=== PATIENT | male | born 1945 ===

== ENCOUNTER 2021-02-01 13:44 | Emergency (ER) | payer OTHER ==
--- OUTSIDE RECORDS SUMMARY | 2021-02-01 13:45 | XMS REPORT | Continuity of Care Document ---
:1945 Author Organization [facility] t Address [address] Garcia [address] [place] [id number] Care Team Providers Name Role Phone Unavailable Unavailable Unavailable Problems This patient has no known problems. Allergies, Adverse Reactions, Alerts This patient has no known allergies or adverse reactions. Medications This patient has no known medications. Procedures This patient has no known procedures. Results This patient has no known results.
[2021-02-01] MEDS ORDERED: NA CHLORIDE 0.9% 1,000 ML ONE (13:52)
[2021-02-01] MEDS ORDERED: FAMOTIDINE 20 MG/2 ML VIAL IV ONE (13:52)
[2021-02-01] MEDS ORDERED: ONDANSETRON 4 MG/2 ML VIAL ONE (13:52)
[2021-02-01 14:04] LABS: Basophils % 0.5 % (0-1.3); Hematocrit 41.2 % (39.6-49.0); Lymphocytes % 11.7 % (15.3-44.8); MPV 8.8 fL (7.6-11.3); RBC Red Blood Cell Count 4.55 M/uL (4.33-5.43)
[2021-02-01 14:07] LABS: Protime INR 1.09
[2021-02-01 14:20] LABS: ALT/SGPT 42 U/L (12-78); AST/SGOT 28 U/L (15-37); Albumin 3.6 g/dL (3.4-5.0); Alkaline Phosphatase 82 U/L (45-117); BUN Blood Urea Nitrogen 25 mg/dL (7-18); Bicarbonate 27 mmol/L (21-32); Bilirubin Direct 0.2 mg/dL (0-0.2); Bilirubin Total 0.5 mg/dL (0.2-1.0); Glucose Level 84 mg/dL (74-106); Magnesium 2.4 mg/dL (1.8-2.4); NT PRO-BNP 36 pg/mL (<450); Protein, Total 7.2 g/dL (6.4-8.2); Sodium Level 139 mmol/L (136-145); Troponin (Emerg Dept Use Only) < 0.02 ng/mL (0.0-0.045)
--- NOTE | 2021-02-01 14:24 | RAD REPORT ---
EXAM DESCRIPTION: Catherine Single View02/01/2021 2:15 pm CLINICAL HISTORY: cough COMPARISON: none FINDINGS: The lungs appear clear of acute infiltrate. The heart is normal size IMPRESSION: No acute abnormalities displayed
--- NOTE | 2021-02-01 14:47 | EDPHYS ---
Physician Documentation [facility] Name: Luis F Greco Age: 75 yrs Sex: Male : 1945 Arrival Date: 02/01/2021 Time: 13:45 Bed 6 Private MD: ED Physician Brandon Mcmillan HPI: 02/01 14:24 This 75 yrs old Male presents to ER via Stretcher with complaints of Syncope. gumaro 14:24 The patient has experienced near-syncope, almost passed out, felt dizzy, felt faint, gumaro felt generally weak. Onset: The symptoms/episode began/occurred just prior to arrival. Duration: This was a single episode, that lasted 3 minute(s). Context: the episode(s) was witnessed, by a bystander, by family, occurred at a hospital, occurred while the patient was WITH . Associated injury: The patient did not suffer any apparent associated injury. Associated signs and symptoms: The patient has no apparent associated signs or symptoms. Current symptoms: Currently, the patient is not experiencing any symptoms. The patient has not experienced similar symptoms in the past. - Immunization history:: Adult Immunizations up to date. - Social history:: Smoking status: Patient denies any tobacco usage or history of. - Family history:: not pertinent. ROS: 14:24 Constitutional: Negative for fever, chills, and weight loss, Eyes: Negative for injury, gumaro pain, redness, and discharge, ENT: Negative for injury, pain, and discharge, Neck: Negative for injury, pain, and swelling, Cardiovascular: Negative for chest pain, palpitations, and edema, Respiratory: Negative for shortness of breath, cough, wheezing, and pleuritic chest pain, Abdomen/GI: Negative for abdominal pain, nausea, vomiting, diarrhea, and constipation, Back: Negative for injury and pain, : Negative for injury, bleeding, discharge, and swelling, MS/Extremity: Negative for injury and deformity, Skin: Negative for injury, rash, and discoloration, Psych: Negative for depression, anxiety, suicide ideation, homicidal ideation, and hallucinations, Allergy/Immunology: Negative for hives, rash, and allergies, Endocrine: Negative for neck swelling, polydipsia, polyuria, polyphagia, and marked weight changes, Hematologic/Lymphatic: Negative for swollen nodes, abnormal bleeding, and unusual bruising. 14:24 Neuro: Positive for near syncope, weakness, PALE AND CLAMMY. Exam: 14:30 Constitutional: This is a well developed, well nourished patient who is awake, alert, gumaro and in no acute distress. Head/Face: Normocephalic, atraumatic. Eyes: Pupils equal round and reactive to light, extra-ocular motions intact. Lids and lashes normal. Conjunctiva and sclera are non-icteric and not injected. Cornea within normal limits. Periorbital areas with no swelling, redness, or edema. ENT: Nares patent. No nasal discharge, no septal abnormalities noted. Tympanic membranes are normal and external auditory canals are clear. Oropharynx with no redness, swelling, or masses, exudates, or evidence of obstruction, uvula midline. Mucous membranes moist. Neck: Trachea midline, no thyromegaly or masses palpated, and no cervical lymphadenopathy. Supple, full range of motion without nuchal rigidity, or vertebral point tenderness. No Meningismus. Chest/axilla: Normal chest wall appearance and motion. Nontender with no deformity. No lesions are appreciated. Cardiovascular: Regular rate and rhythm with a normal S1 and S2. No gallops, murmurs, or rubs. Normal PMI, no JVD. No pulse deficits. Respiratory: Lungs have equal breath sounds bilaterally, clear to auscultation and percussion. No rales, rhonchi or wheezes noted. No increased work of breathing, no retractions or nasal flaring. Abdomen/GI: Soft, non-tender, with normal bowel sounds. No distension or tympany. No guarding or rebound. No evidence of tenderness throughout. Back: No spinal tenderness. No costovertebral tenderness. Full range of motion. Male : Normal genitalia with no discharge or lesions. MS/ Extremity: Pulses equal, no cyanosis. Neurovascular intact. Full, normal range of motion. Neuro: Awake and alert, GCS 15, oriented to person, place, time, and situation. Cranial nerves II-XII grossly intact. Motor strength 5/5 in all extremities. Sensory grossly intact. Cerebellar exam normal. Normal gait. Psych: Awake, alert, with orientation to person, place and time. Behavior, mood, and affect are within normal limits. 14:30 Skin: Appearance: Color: pale, Temperature: cool, Moisture: diaphoretic, petechiae, not noted, ecchymosis, not noted, flushing, not noted, diaphoresis is noted, abscess, not appreciated, cellulitis, is not appreciated, induration, that is mild is noted. 14:30 Neuro: Orientation: is normal, appropriate for stated age, no acute changes, Mentation: is normal, appropriate for stated age, no acute changes, Memory: is normal, appropriate for stated age, no acute changes, Cranial nerves: grossly normal, is grossly normal based on the patient's age, no acute changes, Cerebellar function: is grossly normal, is grossly normal based on the patient's age, no acute changes, Motor: is normal, is grossly normal based on the patient's age, no acute changes, moves all fours, strength is normal, Sensation: no obvious gross deficits, no acute changes, Gait: is steady, at a normal pace, without difficulty, appropriate for age, Deep tendon reflexes are normal, 2+ (normal) in the bilateral brachioradialis, bicep, tricep and patellar and Achilles tendons, seizure activity, is not displayed by the patient. 14:33 ECG was reviewed by the Attending Physician. gumaro Vital Signs: 13:45 BP 118 / 59; Pulse 60; Resp 17; Pulse Ox 100% ; Pain 0/10; jh6 13:57 BP 118 / 59; Pulse 62; Resp 16; Pulse Ox 96% on R/A; iw 14:47 BP 114 / 60; Pulse 60; Resp 18; Pulse Ox 100% ; Pain 0/10; jh6 14:55 BP 114 / 60 Sitting; Pulse 60; Resp 17; Pulse Ox 100% ; jh6 14:55 BP 104 / 57 Standing; Pulse 67; Resp 17; Pulse Ox 100% ; Pain 0/10; jh6 NIH Stroke Scale Scores: 14:30 NIHSS Score: 0 gumaro MDM: 13:47 Patient medically screened. gumaro 14:32 Differential Diagnosis: cardiac arrhythmia, cerebrovascular accident, emotional gumaro response, GI bleed, idiopathic syncope, vasovagal episode. Data reviewed: vital signs, nurses notes, lab test result(s), EKG, radiologic studies, plain films. Data interpreted: groundwater monitoring technician: rate is 96 beats/min, rhythm is regular, Pulse oximetry: on room air is 96 %. Test interpretation: by ED physician or midlevel provider: ECG, plain radiologic studies. Counseling: I had a detailed discussion with the patient and/or guardian regarding: the historical points, exam findings, and any diagnostic results supporting the discharge/admit diagnosis, lab results, radiology results, the need for outpatient follow up, for definitive care, a prior authorization nurse, an testing lead. 02/01 13:48 Order name: Basic Metabolic Panel; Complete Time: 14:24 [facility] 02/01 13:48 Order name: CBC with Diff; Complete Time: 14:24 [facility] 02/01 13:48 Order name: LFT's; Complete Time: 14:24 [facility] 02/01 13:48 Order name: Magnesium; Complete Time: 14:24 [facility] 02/01 13:48 Order name: NT PRO-BNP; Complete Time: 14:24 [facility] 02/01 13:48 Order name: PT-INR; Complete Time: 14:24 [facility] 02/01 13:48 Order name: Troponin (emerg Dept Use Only); Complete Time: 14:24 [facility] 02/01 13:48 Order name: XRAY Chest (1 view); Complete Time: 14:46 [facility] 02/01 13:48 Order name: EKG; Complete Time: 13:49 [facility] 02/01 13:48 Order name: Cardiac monitoring; Complete Time: 14:01 [facility] 02/01 14:01 Order name: glucometer results - FOR PT WITH NO ID; Complete Time: 14:24 [facility] 02/01 13:48 Order name: EKG - Nurse/Tech; Complete Time: 14:01 [facility] 02/01 13:48 Order name: IV Saline Lock; Complete Time: 14:47 [facility] 02/01 13:48 Order name: Labs collected and sent; Complete Time: 14:07 [facility] 02/01 13:48 Order name: O2 Per Protocol; Complete Time: 14:07 [facility] 02/01 13:48 Order name: O2 Sat Monitoring; Complete Time: 14:07 [facility] 02/01 13:48 Order name: Urine Dipstick-Ancillary (obtain specimen) [facility] 02/01 14:46 Order name: Orthostatics; Complete Time: 14:55 [facility] EC:33 Rate is 94 beats/min. Rhythm is regular. QRS [place] is Normal. CA interval is normal. QRS gumaro interval is normal. QT interval is normal. No Q waves. T waves are Normal. No ST changes noted. Clinical impression: Normal ECG and No evidence of ischemia. Interpreted by me. Reviewed by me. Administered Medications: 14:00 Drug: NS 0.9% 1000 ml Route: IV; Rate: 1 bolus; Site: right forearm; [facility] 14:30 Follow up: IV Status: Completed infusion 6 14:51 Follow up: Response: No adverse reaction 6 14:00 Drug: Pepcid (famotidine) 20 mg Route: IVP; Site: right forearm; 6 14:51 Follow up: Response: No adverse reaction [facility] 14:00 Drug: Zofran (Ondansetron) 4 mg Route: IVP; Site: right forearm; 6 14:51 Follow up: Response: No adverse reaction [facility] Disposition Summary: 02/01/21 14:46 Discharge Ordered Location: Home gumaro Problem: new gumaro Symptoms: have improved gumaro Condition: Stable gumaro Diagnosis - Syncope Near - VASOVAGAL gumaro Followup: gumaro - With: Private Physician - When: 2 - 3 days - Reason: Recheck today's complaints, Continuance of care, Re-evaluation by your physician Discharge Instructions: - Discharge Summary Sheet gumaro - Near-Syncope gumaro - Syncope gumaro - Weakness gumaro - Near-Syncope, Mogd-[id number]-Vkte gumaro - Syncope, [id number] gumaro - Weakness, Dura-gc-Sria gumaro Forms: - Medication Reconciliation Form gumaro - Thank You Letter gumaro - Antibiotic Education gumaro - Prescription Opioid Use gumaro NIH Stroke Scale - NIH Stroke Score Date: 02/01/2021 Time: 14:30 Total Score = 0 1a. Level of Consciousness (LOC) - 0(Alert) 1b. Level of Consciousness (LOC) (Month \T\ Age) - 0(Both) 1c. LOC Commands (Open \T\ Closes Eyes/Mechanical Maintenance Supervisor) - 0(Both) 2. Best Gaze (Lateral Gaze Paresis) - 0(Normal) 3. Visual Field Loss - 0(No visual loss) 4. Facial Palsy - 0(Normal) 5a. Left Arm: Motor (10-second hold) - 0(No drift) 5b. Right Arm: Motor (10-second hold) - 0(No drift) 6a. Left Leg: Motor (5-second hold - always test supine) - 0(No drift) 6b. Right Leg: Motor (5-second hold - always test supine) - 0(No drift) 7. Limb Ataxia (finger/nose \T\ heel/carrillo - test with eyes open) - 0(Absent) 8. Sensory Loss (pinprick arms/legs/face) - 0(Normal) 9. Best Language: Aphasia (description/naming/reading) - 0(No aphasia) 10. Dysarthria (speech clarity - read or repeat words) - 0(Normal) 11. Extinction and Inattention (visual/tactile/auditory/spatial/personal) - 0(No abnormality) Initials: gumaro Signatures: Dispatcher [employer] Brandon Joaquin MD MD cha Peltier, Brian, RN RN bp Bea Altman RN RN jh6
--- NOTE | 2021-02-01 14:47 | ER ---
Nurse's Notes [facility] Name: Luis F Greco Age: 75 yrs Sex: Male : 1945 Arrival Date: 02/01/2021 Time: 13:45 Bed 6 Private MD: Diagnosis: Syncope Near-VASOVAGAL Presentation: 02/01 13:56 Chief complaint: pt was visitor in ER bed 14, started to feel weak and dizzy,sat down iw in chair, syncopal episode lasted a few seconds, vomited X 2, appears pale diaphoretic, moved to ER bed 6. Coronavirus screen: At this time, the client does not indicate any symptoms associated with coronavirus-19. Ebola Screen: Patient negative for fever greater than or equal to 101.5 degrees Fahrenheit, and additional compatible Ebola Virus Disease symptoms Patient denies exposure to infectious person. Patient denies travel to an Ebola-affected area in the 21 days before illness onset. No symptoms or risks identified at this time. Initial Sepsis Screen: Does the patient meet any 2 criteria? No. Patient's initial sepsis screen is negative. Does the patient have a suspected source of infection? No. Patient's initial sepsis screen is negative. Risk Assessment: Do you want to hurt yourself or someone else? Patient reports no desire to harm self or others. Onset of symptoms was February 01, 2021. 13:56 Method Of Arrival: Stretcher 13:56 Acuity: JORGE ALBERTO 2 iw Triage Assessment: 14:25 General: Appears distressed, uncomfortable, Behavior is cooperative, appropriate for bp age, anxious. Pain: Denies pain. EENT: No deficits noted. Neuro: Reports a syncopal episode. Cardiovascular: No deficits noted. Respiratory: No deficits noted. GI: No signs and/or symptoms were reported involving the gastrointestinal system. : No signs and/or symptoms were reported regarding the genitourinary system. Derm: No deficits noted. Musculoskeletal: No deficits noted. - Immunization history:: Adult Immunizations up to date. - Social history:: Smoking status: Patient denies any tobacco usage or history of. - Family history:: not pertinent. Screenin:25 Abuse screen: Denies threats or abuse. Denies injuries from another. Nutritional bp screening: No deficits noted. Tuberculosis screening: No symptoms or risk factors identified. Fall Risk None identified. Assessment: 14:00 Neuro: Level of Consciousness is awake, alert, Oriented to person, place, time, jh6 situation, Corporate Development Manager are equal bilaterally Moves all extremities. Full function Gait is unsteady, Speech is normal, Facial symmetry appears normal, Pupils are PERRLA, Intact Babinski is positive. 14:25 General: SEE TRIAGE NOTE. bp 14:30 Neuro: No deficits noted. Pt states that he felt like he was going to pass out and sat jh6 down. States that he hasn't been sleeping well due to being sick and helping her. . 14:30 Cardiovascular: No deficits noted. Rhythm is sinus rhythm. jh6 15:08 Reassessment: Patient is alert, oriented x 3, equal unlabored respirations, skin jh6 warm/dry/pink. Neg tilt test, pt states that he is feeling better now and is no longer nauseated. Patient denies pain at this time. Patient states feeling better. Patient states symptoms have improved. Vital Signs: 13:45 BP 118 / 59; Pulse 60; Resp 17; Pulse Ox 100% ; Pain 0/10; jh6 13:57 BP 118 / 59; Pulse 62; Resp 16; Pulse Ox 96% on R/A; iw 14:47 BP 114 / 60; Pulse 60; Resp 18; Pulse Ox 100% ; Pain 0/10; jh6 14:55 BP 114 / 60 Sitting; Pulse 60; Resp 17; Pulse Ox 100% ; jh6 14:55 BP 104 / 57 Standing; Pulse 67; Resp 17; Pulse Ox 100% ; Pain 0/10; jh6 NIH Stroke Scale Scores: 14:30 NIHSS Score: 0 [facility] ED Course: 13:45 Patient arrived in ED. jh6 13:47 Brandon Mcmillan MD is Attending Physician. [facility] 13:50 Flo Ceja, RN is Primary Nurse. bp 13:57 Triage completed. iw 14:00 Emesis basin given. jh6 14:02 EKG done, by ED staff, reviewed by Brandon Mcmillan MD. em1 14:05 Inserted saline lock: 20 gauge in right forearm, using aseptic technique. Blood bp collected. 14:15 XRAY Chest (1 view) In Process Unspecified. EDMS 14:25 Patient has correct armband on for positive identification. Bed in low position. Call bp light in reach. Side rails up X2. 15:06 IV discontinued, intact, bleeding controlled, No redness/swelling at site. Pressure [facility] dressing applied. 15:06 No provider procedures requiring assistance completed. [facility] Administered Medications: 14:00 Drug: NS 0.9% 1000 ml Route: IV; Rate: 1 bolus; Site: right forearm; [facility] 14:30 Follow up: IV Status: Completed infusion [facility] 14:51 Follow up: Response: No adverse reaction [facility] 14:00 Drug: Pepcid (famotidine) 20 mg Route: IVP; Site: right forearm; [facility] 14:51 Follow up: Response: No adverse reaction [facility] 14:00 Drug: Zofran (Ondansetron) 4 mg Route: IVP; Site: right forearm; [facility] 14:51 Follow up: Response: No adverse reaction [facility] Outcome: 14:46 Discharge ordered by MD. naik 15:07 Discharged to home ambulatory. [facility] 15:07 Condition: improved 15:07 Discharge instructions given to patient, Instructed on discharge instructions, follow up and referral plans. Demonstrated understanding of instructions, follow-up care. 15:09 Patient left the ED. [facility] NIH Stroke Scale - NIH Stroke Score Date: 02/01/2021 Time: 14:30 Total Score = 0 1a. Level of Consciousness (LOC) - 0(Alert) 1b. Level of Consciousness (LOC) (Month \T\ Age) - 0(Both) 1c. LOC Commands (Open \T\ Closes Eyes/Rotary Cutter) - 0(Both) 2. Best Gaze (Lateral Gaze Paresis) - 0(Normal) 3. Visual Field Loss - 0(No visual loss) 4. Facial Palsy - 0(Normal) 5a. Left Arm: Motor (10-second hold) - 0(No drift) 5b. Right Arm: Motor (10-second hold) - 0(No drift) 6a. Left Leg: Motor (5-second hold - always test supine) - 0(No drift) 6b. Right Leg: Motor (5-second hold - always test supine) - 0(No drift) 7. Limb Ataxia (finger/nose \T\ heel/carrillo - test with eyes open) - 0(Absent) 8. Sensory Loss (pinprick arms/legs/face) - 0(Normal) 9. Best Language: Aphasia (description/naming/reading) - 0(No aphasia) 10. Dysarthria (speech clarity - read or repeat words) - 0(Normal) 11. Extinction and Inattention (visual/tactile/auditory/spatial/personal) - 0(No abnormality) Initials: gumaro Signatures: Dispatcher [employer] Brandon Joaquin, Antionette White MD, cha, RN Matthias Arrieta em1 Flo Ceja RN RN bp Bea Altman RN RN jh6
[2021-02-01 15:19] VITALS: O2SAT 100
[2021-02-01 15:21] VITALS: BP 104/57
--- NOTE | 2021-02-02 12:05 | EKG ---
Test Date: 2021-02-01 Test Time: 13:42:27 Mechanical Engineering Teacher: ALFONSO MEASUREMENT RESULTS: Intervals: Rate: 62 TN: 158 QRSD: 84 QT: 412 QTc: 418 Winfred: P: 54 TN: 158 QRS: 64 T: 33 INTERPRETIVE STATEMENTS: Normal sinus rhythm Normal ECG Compared to ECG 07/22/1993 14:08:00 Sinus arrhythmia no longer present Electronically Signed On 02-02-21 12:02:54 MASTER RIGGER by Terry Sharma
== END 2021-02-01 15:09 | disposition home or self-care (01) ==
LOC: ER 13:44
DX: R55 Syncope and collapse (principal)
CPT/HCPCS: 93005; 85025; 80048; 36415; 83735; 85610; 82947; 80076; 84484; 83880; 71045; 96375; 96374; 99284; J7030; J2405